=== PATIENT | male | born 1955 | race Caucasian/White ===

== ENCOUNTER 2018-06-13 20:52 | Emergency (ER) | payer BC ==
[2018-06-13] MEDS ORDERED: LIDOCAINE 1% 10 ML VIAL INJ ONE ×3 (21:40→23:58)
[2018-06-13] MEDS ORDERED: CHLORHEXIDINE GLUCONATE 4 % 15 ML UD TOP ONE (21:40)
[2018-06-13] MEDS ORDERED: ONDANSETRON INJ 4 MG/2 ML VIAL IV ONE (22:21)
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
[2018-06-13] MEDS ORDERED: PROMETHAZINE HCL INJ 25 MG/ML VIAL ONE (23:23)
[2018-06-13] MEDS ORDERED: PROMETHAZINE HCL INJ 25 MG/ML VIAL IM ONE (23:23)
[2018-06-13] MEDS ORDERED: TETANUS,DIPHTHERIA,PERTUSSIS 1 EA SYG IM ONE (23:24)
[2018-06-14] MEDS ORDERED: NEOMYCIN-BACITRACIN-POLYMYXIN 0.9 GM UD TOP ONE (00:17)
[2018-06-14] MEDS ORDERED: ceFAZolin SODIUM 1 GM in SODIUM CHL 0.9% 50ML MIN-BAG+ 50 ML IVPB ONE (00:24)
[2018-06-14] MEDS ORDERED: ceFAZolin SODIUM 1 GM VIAL ONE (00:31)
[2018-06-14] MEDS ORDERED: SODIUM CHL 0.9% 50ML MIN-BAG+ 50 ML IVPB ONE (00:31)
[2018-06-14 01:05] VITALS: BP 144/85; TEMP 98.2; O2SAT 98
[2018-06-14] MEDS ORDERED: HYDROcodone 5MG/APAP 325MG 1 EA TAB PO ONE (01:05)
[2018-06-14] MEDS ORDERED: HYDROcodone 5MG/APAP 325MG 1 EA TAB ONE (01:06)
== END 2018-06-14 01:22 | disposition home or self-care (01) ==
LOC: EDBD 20:52 → ER 20:52
DX: S01.02XA Laceration with foreign body of scalp, initial encounter (principal); S01.322A Laceration with foreign body of left ear, initial encounter; I10 Essential (primary) hypertension; V86.59XA Driver of other special all-terrain or other off-road motor vehicle injured in nontraffic accident, initial encounter; Z23 Encounter for immunization; W25.XXXA Contact with sharp glass, initial encounter; Z87.891 Personal history of nicotine dependence; Y92.9 Unspecified place or not applicable
CPT/HCPCS: 90471; 90715; 93005; J0690; J2405; J2550; J7050